=== PATIENT | female | born 1955 ===

== ENCOUNTER 2018-02-28 23:56 | Emergency (ER) | payer MEDICAID ==
[2018-03-01] MEDS ORDERED: Tetanus/Diphtheria Toxoids 0.5 ml Syringe IM ONE ×2 (00:19→00:31)
[2018-03-01] MEDS ORDERED: Lidocaine Hydrochloride 5 ML INJ ONE (00:27)
[2018-03-01] MEDS ORDERED: Bacitracin 500 Units/gm Oint Foilpak UD ONE (00:52)
--- NOTE | 2018-03-01 00:58 | C.PDOC ---
History Of Present Illness 63 year old female presents to the ED for evaluation of a laceration over her right eyebrow. Patient reports that her bedroom door was off the hinges, came lose and hit her in the head. Patient denies LOC, dizziness, blurry vision, nausea, vomit, weakness, numbness. Time Seen by Provider: 03/01/18 00:12 Chief Complaint (Nursing): Abnormal Skin Integrity History Per: Patient History/Exam Limitations: no limitations Onset/Duration Of Symptoms: Hrs Current Symptoms Are (Timing): Still Present Location Of Injury: Right: Face (eyebrow) Quality Of Symptoms: Painful, Swollen Recent travel outside of the [place]: No Additional History Per: Patient Past Medical History Reviewed: Historical Data, Nursing Documentation, Vital Signs Vital Signs: Last Vital Signs Temp 98 F 03/01/18 01:18 Pulse 89 03/01/18 01:18 Resp 20 03/01/18 01:18 BP 110/72 03/01/18 01:18 Pulse Ox 95 03/01/18 02:21 - Medical History PMH: Hypercholesterolemia Denies: Chronic Kidney Disease Surgical History: No Surg Hx Family History: States: Unknown Family Hx - Social History Hx Alcohol Use: Yes Hx Substance Use: No - Immunization History Hx Tetanus Toxoid Vaccination: No Hx Influenza Vaccination: No Hx Pneumococcal Vaccination: No Review Of Systems Constitutional: Negative for: Fever, Chills Eyes: Negative for: Vision Change Gastrointestinal: Negative for: Nausea, Vomiting Skin: Negative for: Rash Neurological: Positive for: Headache. Negative for: Weakness, Numbness Physical Exam - Physical Exam Appears: Non-toxic, No Acute Distress Skin: Normal Color, Warm, Dry Head: Atraumatic, Normacephalic, No Tenderness (facial bone, no trismus), Swelling (forehead), Laceration (2.5 cm over right eyebrow) Eye(s): bilateral: Normal Inspection, PERRL, EOMI Oral Mucosa: Moist Neck: Normal ROM, No Midline Cervical Tenderness, Supple Chest: Symmetrical Cardiovascular: Rhythm Regular Respiratory: Normal Breath Sounds, No Rales, No Rhonchi, No Wheezing Gastrointestinal/Abdominal: Soft, No Tenderness, No Guarding, No Rebound Extremity: Normal ROM, No Tenderness, No Swelling Neurological/Psych: Oriented x3, Normal Speech, Normal Motor, Normal Sensation Gait: Steady ED Course And Treatment O2 Sat by Pulse Oximetry: 95 (ON RA) Pulse Ox Interpretation: Normal Progress Note: Plan: - tetanus immunization. - Tylenol 650 mg PO. Patient had wound sutured, tolerated the procedure well and was told to come back for wound check in 2 days. Laceration - Laceration Repair right eyebrow Wound Length (In cm): 2.5 Description Of Wound: Linear Wound Cleansed With: Sterile Saline Anesthesia: Lidocaine 1% Wound Examination: Irrigated With Saline Wound Closure: Suture (X4) Suture Technique And Material Used: Nylon (5-o) Wound Complexity: Simple Disposition Counseled Patient/Family Regarding: Diagnosis, Need For Followup - Disposition Referrals: Annia Harkins MD [Medical Doctor] - Disposition: HOME/ ROUTINE Disposition Time: 00:56 Condition: STABLE Additional Instructions: Please follow up with PMD in 2 days for wound check Suture removal in 7 days Tylenol or advil for pain Observe for head injury precautions Return to ER if worse Instructions: Laceration Repair With Stitches (DC), Minor Head Injury (DC) Forms: [email or web address] (Qatari) Print Language: ANGUILLAN - Clinical Impression Clinical Impression: Laceration of right eyebrow, Head injury - 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 - Scribe Statement The provider has reviewed the documentation as recorded by the Scribe Darrion Wolfe All medical record entries made by the Scribe were at my direction and personally dictated by me. I have reviewed the chart and agree that the record accurately reflects my personal performance of the history, physical exam, medical decision making, and the department course for this patient. I have also personally directed, reviewed, and agree with the discharge instructions and disposition.
[2018-03-01] MEDS ORDERED: Bacitracin Ointment 30 GM TUBE TOP STA (01:01)
[2018-03-01 01:19] VITALS: BP 110/72; PULSE 89; RESP 20; TEMP 98
[2018-03-01 02:15] VITALS: O2SAT 95
== END 2018-03-01 01:19 | disposition home or self-care (01) ==
LOC: C.ER 23:56
DX: S01.111A Laceration without foreign body of right eyelid and periocular area, initial encounter (principal); W20.8XXA Other cause of strike by thrown, projected or falling object, initial encounter; E78.00 Pure hypercholesterolemia, unspecified; Z23 Encounter for immunization

== ENCOUNTER 2018-03-09 10:49 | Emergency (ER) | payer MEDICAID ==
[2018-03-09 11:00] VITALS: BMI 24.1
[2018-03-09] MEDS ORDERED: Bacitracin 500 Units/gm Oint Foilpak UD TOP ONE (12:00)
[2018-03-09] MEDS ORDERED: Bacitracin 500 Units/gm Oint Foilpak UD ONE (12:06)
--- NOTE | 2018-03-09 12:16 | C.PDOC ---
Time Seen by Provider: 03/09/18 11:55 Chief Complaint (Nursing): Suture/Staple Removal History Per: Patient Onset/Duration Of Symptoms: Days Ago, Laceration Current Symptoms Are (Timing): Better Location Of Injury: Right: Face (eyebrow) Quality Of Symptoms: denies: Swollen, Draining Severity: Mild Additional History Per: Prior Records Past Medical History Reviewed: Historical Data, Nursing Documentation, Vital Signs Vital Signs: Last Vital Signs Temp 98.8 F 03/09/18 11:00 Pulse 87 03/09/18 11:00 Resp 20 03/09/18 11:00 BP 122/72 03/09/18 11:00 Pulse Ox 98 03/09/18 11:00 - Medical History PMH: Hypercholesterolemia Family History: States: Unknown Family Hx - Social History Hx Alcohol Use: Yes Hx Substance Use: No - Immunization History Hx Tetanus Toxoid Vaccination: No Hx Influenza Vaccination: No Hx Pneumococcal Vaccination: No Review Of Systems Except As Marked, All Systems Reviewed And Found Negative. Constitutional: Negative for: Fever, Weakness Eyes: Negative for: Vision Change, Conjunctivae Inflammation Gastrointestinal: Negative for: Vomiting Musculoskeletal: Negative for: Neck Pain Skin: Negative for: Rash Neurological: Negative for: Weakness, Numbness, Headache Physical Exam - Physical Exam Appears: Non-toxic, No Acute Distress Skin: Normal Color, Warm, Dry, No Rash Head: Atraumatic, Normacephalic, Laceration (on right eyebrow, closed with sutures, healed) Eye(s): bilateral: PERRL, EOMI Neck: Normal ROM, No Midline Cervical Tenderness, No Step Off Deformity, Supple Extremity: Normal ROM Neurological/Psych: Oriented x3, Normal Speech, Normal Cranial Nerves ED Course And Treatment O2 Sat by Pulse Oximetry: 98 Pulse Ox Interpretation: Normal Progress Note: Sutures were removed by me without difficulty. Reassessment Condition: Improved Disposition Counseled Patient/Family Regarding: Diagnosis, Need For Followup - Disposition Disposition: HOME/ ROUTINE Disposition Time: 12:15 Condition: IMPROVED Additional Instructions: Follow up with your doctor. Return to the ER if you develop redness, swelling, pus drainage, worsening of symptoms or if you have any other concerns. Instructions: Stitches Removal - Clinical Impression Clinical Impression: Removal of suture
[2018-03-09 12:20] VITALS: BP 132/75; PULSE 72; RESP 16; TEMP 98.3; O2SAT 97
== END 2018-03-09 12:20 | disposition home or self-care (01) ==
LOC: C.ER 10:49
DX: Z48.02 Encounter for removal of sutures (principal)

== ENCOUNTER 2018-08-17 08:33 | Day surgery (SDC) | payer MEDICAID ==
[2018-08-17 08:42] VITALS: BMI 38.2
--- NOTE | 2018-08-17 12:46 | CARD ---
APPROVED REPORT Date of service: 08/17/2018 EKG Measurement Heart [id number] <Conclusion> Normal sinus rhythm Normal ECG
== END 2018-08-17 15:33 | disposition home or self-care (01) ==
LOC: C.SPRAD 08:33
PROVIDERS: ATTEND Radiology Vascular & Interventional Radiology
DX: Z53.8 Procedure and treatment not carried out for other reasons (principal)
CPT/HCPCS: 93005; P000X

== ENCOUNTER 2018-11-13 11:36 | Emergency (ER) | payer MEDICAID ==
[2018-11-13 11:36] VITALS: BMI 38.2
[2018-11-13 11:49] VITALS: PULSE 65
[2018-11-13 12:47] LABS: SQUAMOUS EPITHIAL < 1 /hpf (0-5); URINE BILIRUBIN NEGATIVE (NEGATIVE); URINE BLOOD NEGATIVE (NEGATIVE); URINE CLARITY Clear (Clear); URINE COLOR Yellow (YELLOW); URINE GLUCOSE (UA) NORMAL (Normal); URINE LEUKOCYTE ESTERASE NEG Leu/uL (Negative); URINE PROTEIN NEGATIVE (NEGATIVE); URINE UROBILINOGEN NORMAL mg/dL (0.2-1.0)
[2018-11-13 12:52] LABS: BASO # 0.1 K/uL (0.0-0.2); BASO % 1.3 % (0.0-2.0); EOS # 0.1 K/uL (0.0-0.7); EOS % 2.1 % (0.0-4.0); HEMOGLOBIN 13.7 g/dL (11.0-16.0); LYMPH # 2.6 K/uL (1.0-4.3); LYMPH % 37.6 % (20.0-40.0); MEAN CELL VOLUME 91.8 fL (81.0-99.0); MEAN CORPUSCULAR HEMOGLOBIN 30.6 pg (27.0-31.0); MEAN CORPUSCULAR HGB CONC 33.3 g/dL (33.0-37.0); MEAN PLATELET VOLUME 8.7 fL (7.2-11.7); MONO # 0.6 K/uL (0.0-0.8); MONO % 8.6 % (0.0-10.0); NEUT # 3.5 K/uL (1.8-7.0); NEUT % 50.4 % (50.0-75.0); NRBC % 0.1 % (0.0-2.0); RBC 4.49 Mil/uL (3.80-5.20); WHITE BLOOD COUNT 6.8 K/uL (4.8-10.8)
[2018-11-13] MEDS ORDERED: Sodium Chloride 0.9% 1,000 ML IV ONE (12:53)
[2018-11-13 13:04] LABS: ALB/GLOB RATIO 1.3 (1.0-2.1); ALBUMIN 4.1 g/dL (3.5-5.0); ALT/SGPT 8 U/L (9-52); AST/SGOT 23 U/L (14-36); BLOOD UREA NITROGEN 6 mg/dL (7-17); CALCIUM 9.2 mg/dl (8.6-10.4); GFR NON-AFRICAN AMERICAN > 60
[2018-11-13] MEDS ORDERED: Sodium Chloride 0.9% 1,000 ML ONE (13:17)
[2018-11-13] MEDS ORDERED: Iohexol 240 (50 ml) ONE (13:29)
[2018-11-13] MEDS ORDERED: Iodixanol 320 MG/ML 100 ML BOTTLE IV ONE (13:51)
[2018-11-13 14:08] LABS: LIPASE 93 U/L (23-300)
[2018-11-13 14:13] LABS: INR 1.2; PROTHROMBIN TIME 13.1 SECONDS (9.7-12.2)
[2018-11-13 15:00] VITALS: BP 112/65
--- NOTE | 2018-11-13 16:20 | CT ---
Date of service: 11/13/2018 PROCEDURE: CT Abdomen and Pelvis with contrast HISTORY: abd pain COMPARISON: None. TECHNIQUE: Contrast dose: 100 mL of Visipaque 320 intravenously. Axial and reformatted coronal and sagittal CT images of the abdomen and pelvis were obtained after IV and oral contrast administration. Radiation dose: Total exam DLP = 280.23 mGy-cm. This CT exam was performed using one or more of the following dose reduction techniques: Automated exposure control, adjustment of the mA and/or kV according to patient size, and/or use of iterative reconstruction technique. FINDINGS: LOWER THORAX: Ground-glass opacities and small cystic formation noted at the lung bases. Findings are nonspecific and the possibility of pneumonitis or air early fibrotic changes cannot be excluded. There is a small hiatus hernia. LIVER: Heterogeneous enhancement of the liver with diffuse low-attenuation suggestive of hepatic steatosis. GALLBLADDER AND BILE DUCTS: Suspicious for small gallstones without evidence of acute cholecystitis. PANCREAS: Unremarkable. No gross lesion or ductal dilatation. SPLEEN: Unremarkable. ADRENALS: Unremarkable. No mass. KIDNEYS AND URETERS: Unremarkable. No hydronephrosis. No solid mass. VASCULATURE: Unremarkable. No aortic aneurysm. Atherosclerotic calcification is noted in the abdominal aorta and iliac arteries BOWEL: Unremarkable. No obstruction. No gross mural thickening. APPENDIX: Normal appendix. PERITONEUM: Unremarkable. No free fluid. No free air. LYMPH NODES: Unremarkable. No enlarged lymph nodes. BLADDER: Mild urinary bladder wall thickening. REPRODUCTIVE: Unremarkable. BONES: No acute fracture. OTHER FINDINGS: None. IMPRESSION: Cholelithiasis without CT evidence of acute cholecystitis. No evidence of pancreatitis or appendicitis. Hepatic steatosis. Nonspecific ground-glass opacities in the lung bases.
--- NOTE | 2018-11-13 16:45 | C.PDOC ---
History Of Present Illness 63 yo female come in for evaluation of diffuse lower abdominal pain developed for past 3 weeks. Pt reports, pain is intermittent, worse for past few days. Otherwise, pt denies fever, chills, recent illness, denies CP, SOB, dyspnea, palpitation, N/V, change in appetite, diarrhea, UTI sx. Adulatory, not in any apparent distress. Time Seen by Provider: 11/13/18 12:53 Chief Complaint (Nursing): Abdominal Pain History Per: Patient Past Medical History Reviewed: Historical Data, Nursing Documentation, Vital Signs Vital Signs: Last Vital Signs Temp 98.1 F 11/13/18 14:45 Pulse 65 11/13/18 14:45 Resp 16 11/13/18 14:45 BP 112/65 11/13/18 14:45 Pulse Ox 98 11/13/18 14:45 - Medical History PMH: Hypercholesterolemia Denies: Chronic Kidney Disease Surgical History: Family History: States: Unknown Family Hx - Social History Hx Alcohol Use: Yes Hx Substance Use: No - Immunization History Hx Tetanus Toxoid Vaccination: No Hx Influenza Vaccination: No Hx Pneumococcal Vaccination: No Review Of Systems Except As Marked, All Systems Reviewed And Found Negative. Constitutional: Negative for: Fever, Chills Cardiovascular: Negative for: Chest Pain, Palpitations, Edema, Light Headedness Respiratory: Negative for: Cough, Shortness of Breath, Wheezing Gastrointestinal: Positive for: Abdominal Pain. Negative for: Nausea, Vomiting, Diarrhea, Melena, Hematochezia, Hematemesis Skin: Negative for: Rash Neurological: Negative for: Weakness, Numbness Physical Exam - Physical Exam Appears: Well, Non-toxic, No Acute Distress Skin: Normal Color, Warm, Dry Eye(s): bilateral: PERRL Cardiovascular: Rhythm Regular, No Murmur, No JVD Respiratory: No Decreased Breath Sounds, No Accessory Muscle Use, No Wheezing Gastrointestinal/Abdominal: Soft, Tenderness (diffuse lower abdominal), No Distention, No Guarding, No Rebound, Other (well healing suprapubic scar) Back: No CVA Tenderness Extremity: Normal ROM, No Pedal Edema Neurological/Psych: Oriented x3, Normal Speech ED Course And Treatment - Laboratory Results Result Diagrams: 11/13/18 12:44 11/13/18 12:44 Lab Results: PT 13.1 SECONDS (9.7-12.2) H 11/13/18 13:55 INR 1.2 11/13/18 13:55 APTT 31 SECONDS (21-34) 11/13/18 13:55 Total Bilirubin 0.4 mg/dL (0.2-1.3) 11/13/18 12:44 AST 23 U/L (14-36) 11/13/18 12:44 ALT 8 U/L (9-52) L 11/13/18 12:44 Alkaline Phosphatase 60 U/L (38-126) 11/13/18 12:44 Total Protein 7.3 g/dL (6.3-8.3) 11/13/18 12:44 Albumin 4.1 g/dL (3.5-5.0) 11/13/18 12:44 Globulin 3.2 gm/dL (2.2-3.9) 11/13/18 12:44 Albumin/Globulin Ratio 1.3 (1.0-2.1) 11/13/18 12:44 Lipase 93 U/L (23-300) 11/13/18 12:44 Urine Color Yellow (YELLOW) 11/13/18 12:37 Urine Clarity Clear (Clear) 11/13/18 12:37 Urine pH 5.0 (5.0-8.0) 11/13/18 12:37 Ur Specific Felch 1.011 (1.003-1.030) 11/13/18 12:37 Urine Protein Negative mg/dL (NEGATIVE) 11/13/18 12:37 Urine Glucose (UA) Normal mg/dL (Normal) 11/13/18 12:37 Urine Ketones Negative mg/dL (NEGATIVE) 11/13/18 12:37 Urine Blood Negative (NEGATIVE) 11/13/18 12:37 Urine Nitrate Negative (NEGATIVE) 11/13/18 12:37 Urine Bilirubin Negative (NEGATIVE) 11/13/18 12:37 Urine Urobilinogen Normal mg/dL (0.2-1.0) 11/13/18 12:37 Ur Leukocyte Esterase Neg Dixon/uL (Negative) 11/13/18 12:37 Urine WBC (Auto) 2 /hpf (0-5) 11/13/18 12:37 Urine RBC (Auto) < 1 /hpf (0-3) 11/13/18 12:37 Ur Squamous Epith Cells < 1 /hpf (0-5) 11/13/18 12:37 Lab Interpretation: No Acute Changes O2 Sat by Pulse Oximetry: 98 Pulse Ox Interpretation: Normal - CT Scan/US CT A/P Other Rad Studies (CT/US): Radiology Report Reviewed CT/US Interpretation: Creator : Patel Moy MD. Dictator : Patel Moy MD. Mica Sizer : Hydrogeologist : Patel Moy MD. Approver2 : Report Date : 11/13/2018 16:16:44. My Comment : . Date of service: 11/13/2018. PROCEDURE: CT Abdomen and Pelvis with contrast. HISTORY: abd pain. COMPARISON: None. TECHNIQUE: Contrast dose: 100 mL of Visipaque 320 intravenously. Axial and reformatted coronal and sagittal CT images of the abdomen and pelvis were obtained after IV and oral contrast administration. Radiation dose: Total exam DLP = 280.23 mGy-cm. This CT exam was performed using one or more of the following dose reduction techniques: Automated exposure control, adjustment of the mA and/or kV according to patient size, and/or use of iterative reconstruction technique. FINDINGS: LOWER THORAX: Ground-glass opacities and small cystic formation noted at the lung bases. Findings are nonspecific and the possibility of pneumonitis or air early fibrotic changes cannot be excluded. There is a small hiatus hernia. LIVER: Heterogeneous enhancement of the liver with diffuse low-attenuation suggestive of hepatic steatosis. GALLBLADDER AND BILE DUCTS: Suspicious for small gallstones without evidence of acute cholecystitis. PANCREAS: Unremarkable. No gross lesion or ductal dilatation. SPLEEN: Unremarkable. ADRENALS: Unremarkable. No mass. KIDNEYS AND URETERS: Unremarkable. No hydronephrosis. No solid mass. VASCULATURE: Unremarkable. No aortic aneurysm. Atherosclerotic calcification is noted in the abdominal aorta and iliac arteries. BOWEL: Unremarkable. No obstruction. No gross mural thickening. APPENDIX: Normal appendix. PERITONEUM: Unremarkable. No free fluid. No free air. LYMPH NODES: Unremarkable. No enlarged lymph nodes. BLADDER: Mild urinary bladder wall thickening. REPRODUCTIVE: Unremarkable. BONES: No acute fracture. OTHER FINDINGS: None. IMPRESSION: Cholelithiasis without CT evidence of acute cholecystitis. No evidence of pancreatitis or appendicitis. Hepatic steatosis. Nonspecific ground-glass opacities in the lung bases. Progress Note: Pt was OBS in ED for 4 hours and remained stable. On re-eval, pt is afebrile, hemodynamicaly stable. Non-toxic. Pt was able tolerate PO well in ED, (-) vomiting. ABd: benign, (-) guarding, (-) rebound. Back: (-) CVA tenderness. Neurologicaly intact. Blood work review and appears without acute abnormalities. UA- normal study. CT A/P review (+) cholelytiasis without cholecystitis. results review and discussed with pt. Pt has clinical findings c/w abd. pain, cholelithiasis. Pt advised. ref. to F/u with PMD, surgery In 2-3 days for re-evaluation. return if any new changes. Disposition Counseled Patient/Family Regarding: Studies Performed, Diagnosis, Need For Followup, Rx Given - Disposition Referrals: Annia Harkins MD [Medical Doctor] - Disposition: HOME/ ROUTINE Disposition Time: 16:44 Condition: STABLE Additional Instructions: Encourage fluids Diet restriction for greasy, fried, spicy food Follow up with PMD, Surgery in 2-3 days for re-evaluation. return if any worsening or new changes. Instructions: Gallstones Print Language: SAMMARINESE - Clinical Impression Clinical Impression: Cholelithiasis
[2018-11-13 17:22] VITALS: RESP 18; TEMP 98.2; O2SAT 97
== END 2018-11-13 17:22 | disposition home or self-care (01) ==
LOC: C.ER 11:36
DX: K80.20 Calculus of gallbladder without cholecystitis without obstruction (principal)
CPT/HCPCS: 36415; 74177; 80053; 81001; 83690; 85025; 85610; 85730; 96361; 96374; 96375; 99285; C9113; J1885; J2405; J7030; Q9967